=== PATIENT | female | born 1970 | race African-American/Black ===

== ENCOUNTER 2020-10-17 04:21 | Inpatient (IN) | payer BC ==
[2020-10-15 17:38] VITALS: BMI 41.7
[2020-10-17] MEDS ORDERED: LIDOCAINE HCL/PF 2% SDV 5ML VIAL ONE (07:35)
[2020-10-17] MEDS ORDERED: ROCURONIUM BROMIDE 50 MG/5 ML SYRINGE ONE (07:36)
[2020-10-17] MEDS ORDERED: PROPOFOL 20 ML ONE ×2 (07:36→09:36)
[2020-10-17] MEDS ORDERED: BUPIVACAINE HCL/PF 0.5% (5MG/ML) 10 ML VIAL ONE (07:52)
[2020-10-17] MEDS ORDERED: BUPIVACAINE LIPOSOME/PF (EXPAREL) 266 MG/20 ML VIAL ONE (07:52)
[2020-10-17] MEDS ORDERED: MIDAZOLAM HCL 2 MG/2 ML SINGLE DOSE VIAL ONE ×2 (07:53)
[2020-10-17] MEDS ORDERED: CEFAZOLIN 2 GM/D5W 2 GM/50 ML ML IVPB ONE (07:58)
[2020-10-17] MEDS ORDERED: ceFAZolin SODIUM 1 GM VIAL ONE ×3 (08:22→16:36)
[2020-10-17] MEDS: ceFAZolin 2 GRAM PREMIX BAG IVPB ONE ×2 (08:25→16:15)
[2020-10-17] MEDS ORDERED: ONDANSETRON 4 MG/2 ML VIAL IVPUSH PRN ×2 (09:31→13:22)
[2020-10-17] MEDS ORDERED: oxyCODONE HCL 5 MG TABLET PO PRN ×3 (09:32→10:24)
[2020-10-17] MEDS ORDERED: ACETAMINOPHEN 1000 MG/100 ML VIAL (NON FORMULARY) IVPB ONE (09:32)
[2020-10-17] MEDS ORDERED: traMADol HCL 50 MG TABLET PO PRN (09:32)
[2020-10-17] MEDS ORDERED: ACETAMINOPHEN 325 MG TABLET (FP) PO SCH (09:45)
[2020-10-17] MEDS ORDERED: oxyCODONE HCL 10 MG SUSTAINED ACTING TABLET PO SCH (10:00)
[2020-10-17] MEDS ORDERED: IBUPROFEN 800 MG/8 ML IJ IVPB PRN (10:24)
[2020-10-17] MEDS ORDERED: ACETAMINOPHEN 325 MG TABLET (FP) PO PRN (10:24)
[2020-10-17] MEDS ORDERED: IBUPROFEN 800 MG/8 ML IJ IVPB ONE (13:00)
[2020-10-17] MEDS ORDERED: LACTATED RINGERS SOLUTION 1,000 ML/1,000 ML INFUS.BAG IV SCH (13:15)
[2020-10-17] MEDS ORDERED: HYDROmorphone *PCA* 10MG/50ML DISP.SYRIN PCA ONE (13:28)
[2020-10-17] MEDS ORDERED: HYDROmorphone *PCA* 10MG/50ML DISP.SYRIN PCA SCH (13:30)
[2020-10-17] MEDS: LACTATED RINGERS SOLUTION 1,000 ML IV SCH (15:57)
[2020-10-17] MEDS: CEFAZOLIN 2 GM/D5W 2 GM/50 ML ML IVPB SCH (16:15)
[2020-10-18] MEDS: CEFAZOLIN 2 GM/D5W 2 GM/50 ML ML IVPB SCH (01:56)
[2020-10-18] MEDS: LACTATED RINGERS SOLUTION 1,000 ML IV SCH (02:08)
[2020-10-18] MEDS ORDERED: oxyCODONE HCL 5 MG TABLET PO PRN (09:45)
[2020-10-18] MEDS ORDERED: MAG HYDROX/AL HYDROX/SIMETH 30 ML UNIT-DOSE CUP PO PRN (09:45)
[2020-10-18] MEDS ORDERED: PCA PUMP NR ONE (10:16)
[2020-10-18] MEDS: oxyCODONE HCL 5 MG TABLET PO PRN ×2 (11:01→18:55)
[2020-10-18] MEDS: SIMETHICONE 80 MG TAB.CHEW (FP) PO PRN (12:56)
[2020-10-19] MEDS: oxyCODONE HCL 5 MG TABLET PO PRN ×2 (04:28→13:19)
[2020-10-19] MEDS ORDERED: BISACODYL 10 MG SUPP.RECT RC PRN (09:45)
[2020-10-19] MEDS: SIMETHICONE 80 MG TAB.CHEW (FP) PO PRN (13:19)
[2020-10-19 14:57] VITALS: BP 125/77; PULSE 104; TEMP 99.1
== END 2020-10-19 18:27 | disposition home or self-care (01) | DRG 743 ==
LOC: J2C 04:21 → EDSTATUS 08:00 → J6S 16:27
PROVIDERS: ADMIT Obstetrics & Gynecology; ATTEND Obstetrics & Gynecology
PROC: 0UT70ZZ Resection of Bilateral Fallopian Tubes, Open Approach (ICD-10-PCS; 2020-10-17)
PROC: 0UT20ZZ Resection of Bilateral Ovaries, Open Approach (ICD-10-PCS; 2020-10-17)
PROC: 0UT90ZZ Resection of Uterus, Open Approach (ICD-10-PCS; principal; 2020-10-17 08:00)
DX: D25.9 Leiomyoma of uterus, unspecified (principal); N92.0 Excessive and frequent menstruation with regular cycle
CPT/HCPCS: 74018-TC-FY; 86850; 86900; 86901; 94760; J0131